=== PATIENT | male | born 1980 | race Two or more races ===

== ENCOUNTER 2021-09-30 02:16 | Emergency (ER) | payer BC ==
[~2021-09-30] VITALS: Ht 188 cm; Wt 96.2 kg
[2021-09-30] MEDS ORDERED: DEXAMETHASONE SOD PHOSPHATE 10 MG/ML VIAL ONE (02:41)
[2021-09-30] MEDS ORDERED: KETOROLAC TROMETHAMINE INJ 60 MG/2 ML VIAL IM ONE ×2 (02:41→03:00)
[2021-09-30] MEDS ORDERED: CARISOPRODOL 350 MG TABLET ONE (02:41)
[2021-09-30] MEDS ORDERED: CARISOPRODOL 350 MG TABLET PO ONE (03:00)
[2021-09-30] MEDS ORDERED: DEXAMETHASONE SOD PHOSPHATE 4 MG/ML VIAL IM ONE (03:00)
[2021-09-30 03:04] VITALS: BP 135/92
== END 2021-09-30 03:26 | disposition home or self-care (01) ==
LOC: ER 02:21
DX: M54.6 Pain in thoracic spine (principal); G89.29 Other chronic pain; G40.909 Epilepsy, unspecified, not intractable, without status epilepticus; E78.00 Pure hypercholesterolemia, unspecified
CPT/HCPCS: 93005; 96372 ×2; 99284; J1100; J1885

== ENCOUNTER 2024-11-16 15:50 | Emergency (ER) | payer BC, OTHER ==
[~2024-11-16] VITALS: Ht 188 cm; Wt 90.7 kg
[2024-11-16 16:07] VITALS: TEMP 98.2
[2024-11-16] MEDS ORDERED: IV NS 0.9% 250 ML IV ONE (18:08)
[2024-11-16] MEDS ORDERED: IOHEXOL-300 100 ML VIAL IV ONE (18:08)
[2024-11-16] MEDS ORDERED: PANTOPRAZOLE 40 MG VIAL ONE (18:15)
[2024-11-16] MEDS ORDERED: DICYCLOMINE HCL 10 MG/5 ML UDC ONE (18:15)
[2024-11-16] MEDS: DICYCLOMINE HCL 10 MG/5 ML UDC PO ONE (18:15)
[2024-11-16] MEDS: ONDANSETRON 4 MG TAB.RAPDIS SL ONE (18:15)
[2024-11-16] MEDS ORDERED: KETOROLAC TROMETHAMINE 15 MG/ML VIAL ONE (18:15)
[2024-11-16] MEDS ORDERED: ONDANSETRON 4 MG TAB.RAPDIS ONE (18:16)
[2024-11-16] MEDS ORDERED: FAMOTIDINE/PF INJ 20 MG/2 ML VIAL IV ONE (18:16)
[2024-11-16] MEDS: PANTOPRAZOLE 40 MG VIAL IV ONE (18:17)
[2024-11-16] MEDS: KETOROLAC TROMETHAMINE 15 MG/ML VIAL IV ONE (18:18)
[2024-11-16] MEDS: FAMOTIDINE/PF INJ 20 MG/2 ML VIAL IV ONE (18:20)
[2024-11-16 18:21] LABS: BASOPHILS % (AUTO) 0.2 % (0.0-2.0); EOSINOPHILS % (AUTO) 0.1 % (0.0-6.0); HEMATOCRIT 48 % (39-51); HEMOGLOBIN 16.3 g/dL (13.5-17.5); LYMPHOCYTES # (AUTO) 1.2 K/uL (0.8-4.8); LYMPHOCYTES % (AUTO) 11.2 % (20.0-44.0); MEAN CORPUSCULAR HEMOGLOBIN 31 PG (26.0-33.0); MEAN CORPUSCULAR HGB CONC 34 g/dl (31.0-36.0); MEAN CORPUSCULAR VOLUME 90 fL (80-96); MONOCYTES # (AUTO) 0.8 K/uL (0.1-1.30); MONOCYTES % (AUTO) 7.6 % (2.0-12.0); NEUTROPHILS # (AUTO) 8.9 K/uL (1.8-8.9); NEUTROPHILS % (AUTO) 80.9 % (43.0-81.0); PLATELET COUNT (AUTO) 224 K/uL (150-450); RED BLOOD CELL COUNT(AUTO) 5.29 MIL/uL (4.5-6.0); RED CELL DISTRIBUTION WIDTH 14.4 % (11.5-15.0); WHITE BLOOD COUNT (AUTO) 10.9 K/uL (4.3-11.0)
[2024-11-16 18:37] LABS: BILIRUBIN,DIRECT 0.1 mg/dL (0.0-0.2); BILIRUBIN,TOTAL 0.4 mg/dL (0.2-1.0); CALCIUM, SERUM 9.6 mg/dL (8.5-10.1); CREATININE 1.3 mg/dL (0.6-1.3); POTASSIUM 4.3 mmol/L (3.5-5.1); TOTAL PROTEIN, SERUM 8.2 g/dL (6.4-8.2)
[2024-11-16] MEDS ORDERED: PANT40TA49 PO (20:28)
[2024-11-16] MEDS ORDERED: FAMO20TA80 PO (20:28)
[2024-11-16 20:49] VITALS: BP 110/79; O2SAT 98
== END 2024-11-16 20:49 | disposition home or self-care (01) ==
LOC: IVT 15:53
DX: K29.70 Gastritis, unspecified, without bleeding (principal); G40.909 Epilepsy, unspecified, not intractable, without status epilepticus; E78.00 Pure hypercholesterolemia, unspecified
CPT/HCPCS: 99285; 74177; 96374; 96375; 85025; 80048; 83690; 80076; 36415; J3490 ×2; J7050; J2470 ×2; Q0162 ×2; Q9967; J1885 ×2